=== PATIENT | male | born 1950 | race Caucasian/White ===

== ENCOUNTER 2018-05-02 00:28 | Observation (INO) | payer OTHER ==
[2018-05-02] MEDS ORDERED: ASPIRIN 81 MG CHEWABLE TAB PO ONE (00:42)
--- NOTE | 2018-05-02 00:42 | EDPHY ---
H & P Time Seen by Provider: 05/02/18 00:30 HPI/ROS: Chief Complaint: Shaking, lightheaded, sweating HPI: 67-year-old male was at work this morning finishing up paperwork when he had the sudden onset of shaking in both of his hands, he got very lightheaded and sweaty. [place] his breathing was shallow and felt like he might pass out. Did not have any chest pain. Is has never had similar episodes in the past. No history of coronary artery disease. States he last had an ECG about a year ago was told that was normal. Did recently have a trip to [place]. No leg pain or swelling but has not been having some bilateral knee pain. Does have a history of arthritis. No recent illness. No fevers or chills. No cough. Does not have a family history of coronary artery disease or sudden cardiac . Paramedics were called. Patient appeared quite diaphoretic on presentation. ROS: 10 systems were reviewed and were negative except those elements noted in the HPI. PMH: Arthritis Social History: No smoking, no alcohol, no recreational drug use Family History: non-contributory Physical Exam: Gen: Awake, Alert, No Distress HEENT: Nose: no rhinorrhea Eyes: PERRLA, EOMI Mouth: Moist mucosa Neck: Supple, no JVD Chest: nontender, lungs clear to auscultation Heart: S1, S2 normal, no murmur Abd: Soft, non-tender, no guarding Back: no CVA tenderness, no midline tenderness Ext: no edema, non-tender Skin: no rash Neuro: CN II-XII intact, Sensation grossly intact, Strength 5/5 in bilateral upper and lower extremities Constitutional: Initial Vital Signs Temperature (C) 37.8 C 05/02/18 00:36 Heart Rate 105 H 05/02/18 00:36 Respiratory Rate 18 05/02/18 00:36 Blood Pressure 143/80 H 05/02/18 00:36 O2 Sat (%) 96 05/02/18 00:36 O2 Delivery Mode Nasal Cannula O2 (L/minute) 2 Allergies/Adverse Reactions: No Known Allergies Allergy (Unverified 05/02/18 00:50) Home Medications: Medication Instructions Recorded Prednisone 05/02/18 Medical Decision Making - Diagnostics EKG Interpretation: ECG time 12:32 a.m., sinus tachycardia with a rate of 106, patient is Q-waves in leads to 3 in AVF, no acute ST or T-wave changes. Imaging Results: CT scan of the chest shows no large heart with congested vessels consistent with CHF, no PE. Study interpreted by Dr. Metz. ED Course/Re-evaluation: 67-year-old male with an episode of near-syncope shortness of breath and arm shaking. He has Q-waves on his ECG in the inferior leads. Troponin is negative. Symptoms are concerning for cardiac cause. Will obtain troponins laboratory evaluations reassess. Patient's troponin is 0. He does have an elevated D-dimer. Will obtain CT scan of the chest. CT chest is negative for PE. There is some cardiomegaly with congestive vessels consistent with congestive heart failure. I have discussed with Dr. Summers, hospitalist. She will admit to her service for further evaluation. - Data Points Laboratory Results: Laboratory Results 05/02/18 00:30 05/02/18 00:30 05/02/18 05/02/18 05/02/18 00:35 00:30 00:30 WBC RBC Hgb Hct MCV MCH MCHC RDW Plt Count MPV Neut % (Auto) Lymph % (Auto) Faulk % (Auto) Eos % (Auto) Baso % (Auto) Nucleat RBC Rel Count Absolute Neuts (auto) Absolute Lymphs (auto) Absolute Monos (auto) Absolute Eos (auto) Absolute Basos (auto) Absolute Nucleated RBC Immature Gran % Immature Gran # D-Dimer 3.26 ug/mLFEU H ug/mLFEU (0.00-0.50) Sodium 140 mEq/L mEq/L (135-145) Potassium 3.9 mEq/L mEq/L (3.5-5.2) Chloride 106 mEq/L mEq/L (97-110) Carbon Dioxide 19 mEq/l L mEq/l (22-31) Anion Gap 15 mEq/L H mEq/L (6-14) BUN 24 mg/dL H mg/dL (7-23) Creatinine 0.9 mg/dL mg/dL (0.7-1.3) Estimated GFR > 60 Glucose 102 mg/dL H mg/dL (70-100) Calcium 9.3 mg/dL mg/dL (8.5-10.4) POC Troponin I 0.02 ng/mL ng/mL (0.00-0.08) 05/02/18 00:30 WBC 11.24 10^3/uL H 10^3/uL (3.80-9.50) RBC 5.03 10^6/uL 10^6/uL (4.40-6.38) Hgb 15.6 g/dL g/dL (13.7-17.5) Hct 44.8 % % (40.0-51.0) MCV 89.1 fL fL (81.5-99.8) MCH 31.0 pg pg (27.9-34.1) MCHC 34.8 g/dL g/dL (32.4-36.7) RDW 13.6 % % (11.5-15.2) Plt Count 203 10^3/uL 10^3/uL (150-400) MPV 9.1 fL fL (8.7-11.7) Neut % (Auto) 87.4 % H % (39.3-74.2) Lymph % (Auto) 11.0 % L % (15.0-45.0) Faulk % (Auto) 0.8 % L % (4.5-13.0) Eos % (Auto) 0.2 % L % (0.6-7.6) Baso % (Auto) 0.2 % L % (0.3-1.7) Nucleat RBC Rel Count 0.0 % % (0.0-0.2) Absolute Neuts (auto) 9.82 10^3/uL H 10^3/uL (1.70-6.50) Absolute Lymphs (auto) 1.24 10^3/uL 10^3/uL (1.00-3.00) Absolute Monos (auto) 0.09 10^3/uL L 10^3/uL (0.30-0.80) Absolute Eos (auto) 0.02 10^3/uL L 10^3/uL (0.03-0.40) Absolute Basos (auto) 0.02 10^3/uL 10^3/uL (0.02-0.10) Absolute Nucleated RBC 0.00 10^3/uL 10^3/uL (0-0.01) Immature Gran % 0.4 % % (0.0-1.1) Immature Gran # 0.05 10^3/uL 10^3/uL (0.00-0.10) D-Dimer Sodium Potassium Chloride Carbon Dioxide Anion Gap BUN Creatinine Estimated GFR Glucose Calcium POC Troponin I Medications Given: Discontinued Medications Aspirin (Aspirin) 324 mg PO EDNOW ONE Stop: 05/02/18 00:43 Last Admin: 05/02/18 00:57 Dose: 324 mg Sodium Chloride (Ns) 1,000 mls @ 3,000 mls/hr IV ONCE ONE Stop: 05/02/18 01:58 Last Admin: 05/02/18 01:50 Dose: 1,000 mls Point of Care Test Results: Chemistry 05/02/18 00:35 POC Troponin I 0.02 ng/mL ng/mL (0.00-0.08) Departure - Departure Disposition: [facility] Inpatient Acute Clinical Impression: Near syncope Condition: Fair Referrals: NONE *PRIMARY CARE P,. [Unknown] - As per Instructions
[2018-05-02 01:12] LABS: PLATELET COUNT 203 10^3/uL (150-400)
[2018-05-02] MEDS ORDERED: NS 1,000 ML IV ONE ×3 (01:39→17:42)
[2018-05-02] MEDS ORDERED: IOPAMIDOL (ISOVUE 370) 100 ML BTL IV ONE (01:59)
[2018-05-02] MEDS ORDERED: ONDANSETRON DISINTEGRATING 4 MG TAB PO PRN (02:51)
[2018-05-02] MEDS ORDERED: ONDANSETRON 4 MG/2 ML VIAL IVP PRN (02:51)
[2018-05-02] MEDS ORDERED: ACETAMINOPHEN 325 MG TAB PO PRN (02:51)
[2018-05-02] MEDS ORDERED: LORazepam 0.5 MG TAB PO PRN (02:51)
[2018-05-02] MEDS ORDERED: HYDROCODONE/APAP 5/325 TAB PO PRN (02:51)
--- NOTE | 2018-05-02 04:10 | CPEKG ---
Test Reason : OPEN Blood Pressure : / mmHG Vent. Rate : 106 BPM Atrial Rate : 106 BPM P-R Int : 155 ms QRS Dur : 099 ms QT Int : 358 ms P-R-T Axes : 044 -01 -06 degrees QTc Int : 476 ms Sinus tachycardia Borderline T abnormalities, inferior leads Borderline prolonged QT interval Confirmed by Trip Marte ([id number]) on 05/02/2018 4:09:39 AM Referred By: Confirmed By:Trip Marte
[2018-05-02] MEDS ORDERED: MAGNESIUM HYDROXIDE 30 ML UDCUP PO PRN (06:08)
[2018-05-02] MEDS ORDERED: POLYETHYLENE GLYCOL 3350 17 GM PKT PO PRN (06:08)
[2018-05-02] MEDS ORDERED: BISACODYL 10 MG SUPP PR PRN (06:08)
[2018-05-02] MEDS ORDERED: LACTULOSE 20 GM/30 ML UDCUP PO PRN (06:08)
[2018-05-02] MEDS ORDERED: CARBOXYMETHYLCELLULOSE 0.5% 0.4 ML DROPERETTE EACHEYE PRN (07:11)
--- NOTE | 2018-05-02 08:34 | GHP ---
DATE OF ADMISSION: 05/02/2018 PRIMARY CARE PHYSICIAN: Andrea Mejia MD. SOURCE: Patient provided history, appears reliable, EMR was reviewed, and case discussed with ED provider. CHIEF COMPLAINT: Tremor and shortness of breath, and chest discomfort. HISTORY OF PRESENT ILLNESS: This is a very pleasant 67-year-old gentleman with past medical history significant for benign essential hypertension, rheumatoid arthritis, anxiety who presents to the emergency department today with complaints of sudden onset of dyspnea with associated tremor and chest discomfort. The patient reports that he was getting towards the end of his shift and he was sitting down, completing some paperwork, when he began to experience these symptoms. The patient reports that he chronically has a very mild tremor in his right upper extremity at baseline; however, it became quite severe and also included his left hand. He denies any headache, changes in vision, focal deficits. He denies any difficulty speaking. He did report that he developed some dyspnea and chest discomfort during this episode. He also developed diaphoresis. He denies any recent illnesses. No fevers, chills, cough. He did have a recent travel to [place], but denies any lower extremity swelling or calf pain. The patient with a history of RA and bilateral knee replacements, a total on the left and partial on the right, as well as a remote history of lumbar diskectomy. He states that he is generally quite active. He used to ride 10 miles several times weekly on his bike. Has been a little bit less active due to healing from his right partial knee replacement, but denies any previous history or recent history of chest discomfort or shortness of breath with exertion. The patient reports that he had a recent echocardiogram with his PCP within the last year that was reported to be normal. He also reports that he has had a remote history of a treadmill stress test many years ago that was also normal at that time. REVIEW OF SYSTEMS: Ten systems reviewed and negative except as noted above. ALLERGIES: No known drug allergies. HOME MEDICATIONS: The patient reports that he takes lisinopril/HCTZ 10. He is currently completing a prednisone taper for his osteoarthritis. He also has a history of anxiety, for which he is treated with clonazepam. PAST MEDICAL HISTORY: The patient has sleep apnea and wears a CPAP at night. PAST SURGICAL HISTORY: Significant for a diskectomy and left total knee arthroplasty, a right partial knee arthroplasty. FAMILY HISTORY: Mother with a diagnosis of OR and heart disease in her 80s, still living in her 90s and well. Brother and sister with rheumatoid arthritis. SOCIAL HISTORY: Patient is , lives with his . He works for [employer]. He does not smoke, quit 40 years ago. He drinks occasional alcohol, nothing on a daily basis. He does not use any illicit drugs or marijuana. CODE STATUS: Full. PHYSICAL EXAMINATION: VITAL SIGNS: Upon arrival to the emergency department, blood pressure is 143/80, heart rate 105, respiratory rate 18, O2 saturation 96 % on room air with temperature of 37.8. Patient did have 1 low pulse ox measured at 91% on room air, but this was transient. Blood pressure currently available on PCU floor. Blood pressure 117/72, heart rate 89, respiratory rate 17, O2 saturation is 93% on 2 L by nasal cannula, temperature of 36.7. GENERAL : No acute distress, very pleasant, obese, adult gentleman, who is sitting up comfortably on the edge of the bed. HEAD: Normocephalic, atraumatic. EYES: Extraocular muscles are grossly intact. Pupils are equal, round, reactive to light bilaterally. Patient has contact lenses in place bilaterally. He does have some mild conjunctival injection. ENT: Mucous membranes appear moist. Dentition intact. No oropharyngeal erythema. No exudates. No nasal discharge. NECK: Supple. Trachea midline. CV: Regular rate and rhythm. No murmurs, rubs, or gallops appreciated. No chest wall tenderness to palpation. RESPIRATORY: Unlabored breathing. Lungs clear to auscultation bilaterally. No wheezes, rales, or rhonchi appreciated. ABDOMEN: Obese, soft, nontender to palpation. No rebound, guarding, or masses appreciated. : No suprapubic tenderness to palpation. No Weaver catheter in place. EXTREMITIES: Patient without any cyanosis, clubbing, or edema appreciated. 2+ pedal pulses present and symmetric. NEURO: Grossly nonfocal. No facial drooping. Patient moves all extremities as noted above. PSYCH: Thought process, content, and all questions appropriate. Patient is pleasant and cooperative. LABORATORY STUDIES: 1. WBC is 11.24, H and H are 15.6 and 44.8, MCV of 89.1, platelet count is 203 , neutrophil percent is 87.4%, no bands. D-dimer is 3.26. 2. Sodium is 140, potassium is 3.9, chloride 106, CO2 is 19, anion gap of 15, BUN 24, creatinine 0.9, GFR greater than 60, glucose 102, calcium is 9.3. Troponin is negative. TSH is 2.41. Troponin is 0.025. Triglyceride 87, cholesterol is 160, LDL 81, HDL 62. 3. EKG was reviewed myself and shows sinus tachycardia in the low 100s, with Q- waves in the inferior leads and ST depressions in the lateral leads. QTc is 476. No comparison EKGs available. 4. Chest x-ray: Image reviewed myself and also reviewed with the patient. The patient with some mild enlargement of the cardiac silhouette. No vascular congestion is noted. No effusions appreciated. No consolidations. Right hemidiaphragm is slightly elevated, but no free air. 5. CT angio of the chest: Image reviewed. Preliminary report reviewed. Final report pending. Negative for PE. Atelectasis without pleural effusion. Question CHF. ASSESSMENT/PLAN: A very pleasant 67-year-old gentleman with a history of hypertension, obstructive sleep apnea, on CPAP, anxiety, rheumatoid arthritis, who presents to the emergency department with complaints of dyspnea and chest discomfort. 1. Chest discomfort. Initial EKG does show some Q-waves in the inferior leads and ST depressions in the lateral leads. Initial troponin is negative. We will plan to rule out with serial troponins, a repeat EKG in the morning. Given patient's dyspnea, evidence of cardiomegaly, and pulmonary vascular congestion, we will go ahead and order an echocardiogram. The patient has not had a stress test in several years. He has a HEART Score of 2. Given the patient's clinical picture, have discussed with the patient continuing with a treadmill stress test. He reports that he would be amenable to do this. I asked him if he thinks he would be able to complete this with his knee replacements. He reports that he thinks he will be able to do so. Given his increased risk factors and EKG changes, a treadmill with Nuclear Medicine stress as per protocol has been ordered. Echocardiogram in the morning as well. Patient received 324 mg of aspirin in the emergency department. His symptoms did resolve shortly after arrival. 2. Benign essential hypertension. Blood pressures at this time are acceptable. Patient reports he is compliant with daily dose of his lisinopril/ HCTZ. We will monitor blood pressures and continue his home medications. 3. Rheumatoid arthritis. The patient reports he is completing a taper of prednisone. Will continue once diet advanced. 4. Anxiety. Clonazepam p.r.n. 5. Fluid, electrolyte, nutrition. Patient received a liter of IV fluid in the emergency department, given his apparent vascular congestion. We will hold off on additional IV fluids. Patient reports that he has been urinating frequently. He is on HCTZ daily. Electrolytes appear adequate. Do not require replacement at this time. Patient will be n.p.o. and then advance diet after negative stress test. 6. Code status is full. 7. Disposition. Patient admitted to observation status on the PCU floor for close cardiac monitoring. Anticipating that patient's evaluation is negative, the patient has been admitted to observation status pending results of these studies as above. 8. Prophylaxis. Sequential compression devices. Holding anticoagulation at this time. /[id number]/MODL MTDD
[2018-05-02] MEDS: SENNOSIDES/DOCUSATE SODIUM TAB PO SCH ×2 (08:57→20:17)
[2018-05-02] MEDS ORDERED: REGADENOSON 0.4 MG/5 ML SYR IVP ONE (09:16)
--- NOTE | 2018-05-02 10:36 | ASMTCMCOM ---
CM Note CM Note Notes: Spoke with pt's in the room. Pt currently in stress test. Pt lives with and is active exercising several times a week. Pt likely to discharge independently with support from . CM to follow. D/C Plan: Home independently Date Signed: 05/02/2018 10:35 AM Electronically Signed By:Carine Valadez
--- NOTE | 2018-05-02 11:11 | CPR ---
DATE OF PROCEDURE: 05/02/2018 PROCEDURE: Walking treadmill Lexiscan stress test. REASON FOR TEST: Chest discomfort. Resting EKG shows T-wave inversion in lead III. Resting blood pressure 140/76, heart rate 80. He is asymptomatic. This test was started out as a treadmill Rogerio protocol stress test with Lexiscan. Due to inability to get his heart rate to predicted 85%, the test was switched to a Lexiscan walking stress test. There were no significant EKG changes while on the treadmill. He had no chest discomfort or shortness of breath. LEXISCAN NUCLEAR STRESS TEST: Lexiscan was injected, followed by saline flush. Cardiolite was then injected followed by saline flush. He remained walking at 1.7 miles an hour with no EKG changes and remained asymptomatic. Peak blood pressure was 146/84, peak heart rate 98 with injection. There were no significant EKG changes. He remained asymptomatic throughout the stress portion of test. RECOVERY: He spontaneously recovered. His EKG showed T-wave inversion in lead III and aVF. He was asymptomatic. His resting blood pressure was 136/76, heart rate 90. At this time, he currently is stable for nuclear imaging. /[id number]/MODL MTDD
--- NOTE | 2018-05-02 11:52 | ECHO ---
[email or web address] [address] Main: [phone] Fax: Transthoracic Echocardiogram Name: VAN MARTÍNEZ MR#: [id number] Study Date: 05/02/2018 Study Time: 07:48 AM Date of : 1950 Age: 67 year(s) Height: 175.3 cm (69 in.) Weight: 112.04 kg (247 lb.) BSA: 2.26 m2 Gender: Male Examination: Echo Indication: presyncope, Cardiac: dyspnea Image Quality: Technically Difficult Contrast: Requested by: Guerda Summers BP: 110 mmHg/52 mmHg Heart Rate: Rhythm: Indication: presyncope, Cardiac: dyspnea Procedure Staff Electroencephalograph Technologist: Sharifa Lucero RDCS Reading Physician: Francisco Javier Saucedo MD Requesting Provider: Conclusions: No pericardial effusion. Preserved LV systolic function with mild LV hypertrophy. Ejection fraction 60%. Mild mitral regurgitation. Moderate aortic regurgitation. Mild tricuspid regurgitation with right ventricular systolic pressure of 30 mm of mercury. Measurements: Chambers Valvular Assessment AV/MV Valvular Assessment TV/PV Normal Normal Normal Name Value Range Name Value Range Name Value Range Ao Ewelina (2D): 3.4 cm (1.4 cm-2.6 AV Vmax: 1.53 m/s (1 m/s-1.7 TR Vmax: 2.52 mm/s ( - ) cm) m/s) TR PGmax: 25 mmHg ( - ) IVSd (2D): 1.2 cm (0.6 cm-1.1 AV maxP mmHg ( - ) syst. PAP: 30 mmHg ( - ) cm) AV meanP mmHg ( - ) PV Vmax: 1.03 m/s (0.6 m/s-0.9 LVDd (2D): 5.4 cm (4.2 cm-5.9 BRENDEN (VTI): 2.9 cm ( - ) m/s) cm) MV E Vmax: 0.54 m/s ( - ) PV PGmax: 4 mmHg ( - ) LVDs (2D): 3.4 cm (2.1 cm-4 MV A Vmax: 0.63 m/s ( - ) cm) MV E/A: 0.86 ( - ) LVPWd (2D): 1.2 cm (0.6 cm-1 cm) MV PHT: 0.070 s ( - ) LVOTd 2.2 cm 2.2 cm mm MVA (PHT): 3.1 s ( - ) EF Range: 55-60 % RVDd(2D): 3.8 cm (1.9 cm-3.8 cmmm) Continued Measurements: Chambers Valvular Assessment AV/MV Valvular Assessment TV/PV Name Value Name Value Name Value LADs: 4.2 cm MV DecTime: 229 m/s CVP (est.): 5 mmHg LADs Lon.8 cm MV E' Septal: 0.07 m/s LA Area: 22.8 cm2 MV E/E' Septal: 7.30 Patient: VAN MARTÍNEZ Study Date: 05/02/2018 Page 1 of 2 07:48 AM LA Volume: 67 ml MV E/E' Lateral: 3.90 LA Volume Index: 29.6 ml/m2 RA Area: 13.8 cm2 Additional Vessels Name Value Ao Ascendin.3 cm Findings: Left Ventricle: Normal size left ventricle. Mild concentric LV hypertrophy. Normal global systolic LV function. The ejection fraction is estimated to be 55-60 %. No regional wall motion abnormality. Normal diastolic LV function. Right Ventricle: Normal size right ventricle. Normal RV function. Left Atrium: The left atrium is normal in size. Right Atrium: The right atrium is normal in size. Mitral Valve: The mitral valve is normal in appearance and function. Mild mitral valve regurgitation is present. No mitral stenosis is present. Aortic Valve: The aortic valve is normal in appearance. No aortic valve stenosis is present. Difficult to visualize aortic valve leaflets. There appears to be moderate aortic regurgitation. Tricuspid Valve: The tricuspid valve is normal in appearance and function. Mild tricuspid regurgitation is present. The pulmonary artery pressure is normal. Right ventricular systolic pressure measures 30mmHg. Pulmonic Valve: The pulmonic valve is normal in appearance and function. There is no pulmonic regurgitation seen. Aorta: The aorta is normal. Normal size aortic root measuring 3.4 cm. Normal size ascending aorta measuring 3.3 cm. IVC: The IVC is normal sized. Pericardium: No pericardial effusion. Exam Comments: Technically difficult imaging due to body habitus. Suggest RUSLAN to evaluate aortic regurgitation. (No Signature Object) Patient: VAN MARTÍNEZ Study Date: 05/02/2018 Page 2 of 2 07:48 AM [id number]
[2018-05-02] MEDS ORDERED: FUROSEMIDE 40 MG/4 ML VIAL IVP ONE (15:08)
[2018-05-02] MEDS ORDERED: clonazePAM 1 MG TAB PO PRN (15:09)
--- NOTE | 2018-05-02 15:13 | HOSPPROG ---
Hospitalist Progress Note Assessment/Plan: #Chest Pain -unremarkable myocardial study -unremarkable troponin #Moderate Aortic Valve Regurgitation -Cards to see for consideration of RUSLAN in a.m. #CHF, pulm vascular congestion, PEREZ, volume overload -Cards to see -Lasix IV -Preserved LVEF #HTN: labile -holding home BP meds in light of diuresis and labile BP #Acute UTI -Await cultures -Start Rocephin #RA, restart Prednisone SCD's Subjective: no current chest pain. reports dysuria and increased urinary frequency. no cp or sob. reports PEREZ. reports weight gain, pedal edema Objective: Vital Signs Temp Pulse Resp BP Pulse Ox 37.5 C 75 19 147/71 H 91 L 05/02/18 11:38 05/02/18 11:38 05/02/18 11:38 05/02/18 11:38 05/02/18 11:38 05/01/18 05/02/18 05/03/18 05:59 05:59 05:59 Intake Total 900 Output Total 950 100 Balance -50 -100 - Physical Exam Eyes: PERRL Ears, Nose, Mouth, Throat: moist mucous membranes, hearing normal Cardiovascular: regular rate and rhythym, edema Respiratory: no respiratory distress, reduced air movement Gastrointestinal: normoactive bowel sounds, soft, non-tender abdomen Skin: warm Neurologic: AAOx3 Psychiatric: interacting appropriately, not anxious, not encephalopathic Lymph, Heme, Immunologic: No petechiae ICD10 Worksheet Patient Problems: Problems Problem Status Onset Near syncope Acute
[2018-05-02] MEDS: predniSONE 5 MG TAB PO SCH (16:44)
--- NOTE | 2018-05-03 02:23 | GCON ---
REASON FOR CONSULT: We are asked to consult on the patient by the hospitalist due to shortness of breath and chest discomfort. HISTORY OF PRESENT ILLNESS: The patient is a 67-year-old gentleman with past history of hypertension. Last evening, he developed chest discomfort and shortness of breath with an associated tremor. He, additionally, became diaphoretic during this episode. He has not had any recent illnesses; however, he has noted urinary frequency over the last week. He is concerned that he may have a urinary tract infection. He has not been running a fever to his knowledge. Earlier today, he had a nuclear treadmill stress test that reported no cardiac ischemia. He had an echocardiogram done that did show moderate aortic insufficiency. Due to his body habitus, the aortic valve was not well visualized. We were asked to consider a transesophageal echocardiogram for better imaging of the aortic valve. At time of visit, he is resting with no complaint of chest pain or shortness of breath. His family is at bedside. REVIEW OF SYSTEMS: Ten-point system negative except as noted above. MEDICATIONS: He is on: 1. Lisinopril/hydrochlorothiazide 10/40 daily. 2. Clonazepam for anxiety. 3. Currently, prednisone taper for osteoarthritis. ALLERGIES: No known allergies. PAST MEDICAL HISTORY: He has sleep apnea and compliantly wears a CPAP. SURGICAL HISTORY: Diskectomy, left total knee arthroplasty, right partial knee arthroplasty. FAMILY HISTORY: Mother having MT in her 80s, and is still living. SOCIAL HISTORY: He is and lives at home with his . History of smoking and quit 40 years ago. Alcohol occasional. No use of illicit drugs. He is employed with [employer]. PHYSICAL EXAMINATION: Blood pressure 143/70, heart rate 97, respirations 20, oxygen saturation 96%, temperature 37.8 Celsius. GENERAL: He is in no acute distress. HEAD: Normocephalic. EYES: Pupils are equal and round. Membranes moist. No nasal discharge. Trachea midline. CARDIOVASCULAR: Heart rate is regular. No murmurs, rubs, or gallops. RESPIRATORY: Lungs are clear to auscultation. No wheezes, rales, or rhonchi. Abdomen is obese, soft, and nontender. No guarding or masses appreciated. : No suprapubic tenderness. Mild bilateral lower leg edema. No cyanosis. NEUROLOGIC: No facial drooping. Strong hand grasp. Moves appropriately. Thought process appropriate. He is pleasant and cooperative. REPORTS: 1. EKG on admission shows sinus tachycardia with inferior T-wave inversion, QTc 476. 2. Chest x-ray: Mild enlargement of cardiac silhouette. No vascular congestion noted. No effusions appreciated. No consolidations. Right hemidiaphragm slightly elevated. 3. CT angio of the chest: Negative for PE, atelectasis without pleural effusion. 4. Troponin negative. 5. Lipids: Cholesterol 160, triglycerides 87, LDL 81, HDL 62. 6. Nuclear stress test done 05/02/2018, showed no cardiac ischemia. 7. Echocardiogram 05/02/2008: Normal-sized left ventricle, mild concentric LV hypertrophy. Normal global systolic LV function. Ejection fraction estimated 55% to 60%. No regional wall motion abnormality. Normal diastolic LV function. Normal-sized right ventricle. Normal RV function. Left atrium is normal in size. Right atrium is normal in size. Mitral valve is normal with normal appearance and function. Mild mitral valve regurgitation. No mitral stenosis is present. Aortic valve: Aortic valve is normal in appearance. No aortic valve stenosis is present. Difficult to visualize aortic valve leaflets. Moderate aortic regurgitation. Tricuspid valve: The tricuspid valve is normal in appearance and function. Mild tricuspid regurgitation is present. Pulmonary artery pressure is normal. Right ventricular systolic pressure measures 30 mmHg. Pulmonic valve is normal in appearance and function. No pulmonic regurgitation seen. Aorta is normal. Normal-sized aortic root measuring 3.4 cm. Normal-sized ascending aorta measuring 3.3 cm. IVC is normal in size. Pericardium: No pericardial effusion. COMMENTS: Technically difficult imaging due to body habitus. Suggest RUSLAN to evaluate aortic regurgitation. IMPRESSION AND PLAN: Due to the inability to visualize the aortic valve, he will be scheduled for a RUSLAN in the morning. This was reviewed with him and his , with good understanding, and they are in agreement to proceed. He will be n.p.o. after midnight. Further recommendations forthcoming after the transesophageal echocardiogram procedure. At this time, he is currently stable with no chest pain or shortness of breath at time of visit. Thank you very much for asking us to be a part of this gentleman's care. /[id number]/MODL MTDD
[2018-05-03] MEDS ORDERED: NS 1,000 ML IV ONE ×2 (06:00)
--- NOTE | 2018-05-03 10:02 | PDANEPAE ---
ANE Past Medical History - Pulmonary History Hx Oxygen in Use at Home: No O2 in Use at Home (L/minute): 2-5l sleep apnea C-pap Hx Sleep Apnea: Yes - Endocrine History Hx Diabetes: No Hypothyroid: No Hyperthyroid: No Obesity: severe - Chronic Pain History Chronic Pain: Yes (arthritic) ANE Review of Systems Review of Systems: ANE Patient History - Allergies Allergies/Adverse Reactions: No Known Allergies Allergy (Verified 05/02/18 08:30) - Home Medications Home Medications: amLODIPine BESYLATE/BENAZEPRIL [Lotrel 10-40 mg Capsule] 1 each PO DAILY [Last Taken 05/01/18] clonazePAM [klonoPIN (*)] 2 mg PO BID PRN 05/02/18 [Last Taken Unknown] predniSONE 5 mg PO DAILY 05/02/18 [Last Taken 05/01/18] - Smoking Hx Smoking Status: Never smoked ANE Labs/Vital Signs - Labs Result Diagrams: 05/02/18 00:30 05/02/18 00:30 - Vital Signs Blood Pressure: 132/69 Heart Rate: 67 Respiratory Rate: 19 O2 Sat (%): 94 Height: 175.26 cm Weight: 109 kg ANE Physical Exam - Airway Neck exam: decreased ROM, increased neck circumference Mallampati Score: Class 4 Mouth exam: normal dental/mouth exam - Pulmonary Pulmonary: no respiratory distress - Cardiovascular Cardiovascular: irregularly irregular - ASA Status ASA Status: III ANE Anesthesia Plan Anesthesia Plan: GA with mask Total IV Anesthesia: Yes
[2018-05-03] MEDS ORDERED: PROPOFOL/EMULSION 500 MG/50 ML BOTTLE IV ONE (10:06)
[2018-05-03] MEDS ORDERED: LIDOCAINE 1% 5 ML SDV ONE (10:06)
[2018-05-03] MEDS ORDERED: SUCCINYLCHOLINE CHLORIDE 200 MG/10 ML SYR IVP ONE (10:07)
--- NOTE | 2018-05-03 10:20 | PDHPUP ---
History & Physical Update H&P update statement: This history and physical update is based on an assessment of the patient which was completed after admission or registration (within 24 hours), but prior to the surgery/procedure. H&P update: H&P reviewed & patient examined, no change in patient's condition since H&P completed
--- NOTE | 2018-05-03 10:54 | POSTANESTH ---
Post Anesthetic Evaluation Cardiovascular Status: Normal, Stable Respiratory Status: Normal, Stable Level of Consciousness/Mental Status: Mildly Sleepy, Arousable Pain Control: Adequate, Prn Tx Ordered Nausea/Vomiting Control: Adequate, Prn Tx Ordered Complications Possibly Related to Anesthesia: None Noted
--- NOTE | 2018-05-03 11:27 | CPR ---
DATE OF PROCEDURE: 05/03/2018 PROCEDURE PERFORMED: Transesophageal echocardiogram. INDICATION FOR PROCEDURE: Transthoracic echocardiogram performed the day before demonstrated moderat e aortic insufficiency. Aortic valve was unable to be adequately assessed in regard to leaflet statu s. In the setting of complaints of shortness of breath, decision was made to pursue transesophageal echocardiogram for further evaluation of the aortic valve. DESCRIPTION OF PROCEDURE: After an informed consent was obtained for both transesophageal echocardio gram as well as anesthesia, the patient had a bite block placed. Once bite block was placed, sedatio n was achieved with propofol. RUSLAN probe was passed without incident. RUSLAN probe was used to take mul tiple images of the aortic valve in short and long axis. Transgastric images were also obtained of t he aortic valve demonstrating moderate aortic insufficiency and trileaflet aortic valve. There is mi ld aortic sclerosis without stenosis. Pressure half-time of approximately 467 milliseconds consisten t with moderate aortic insufficiency. Valvular structures of the mitral valve, tricuspid, and pulmonic valve were also obtained. There was trivial mitral regurgitation. There is no evidence of vegetations or endocarditis on valvular struc tures. Left ventricular function was normal. Please see echocardiogram report for full details. The patient tolerated the procedure well. At the time of this dictation, the patient is recovering f rom sedation. He has remained hemodynamically stable throughout the procedure. CONCLUSION: 1. Trileaflet mildly sclerotic aortic valve with moderate aortic insufficiency with pressure half ti me of approximately 467 milliseconds. 2. Normal left ventricular function. 3. Normal mitral valve structure and function with trivial mitral regurgitation. /[id number]/MODL
[2018-05-03 11:51] VITALS: BP 118/69
[2018-05-03] MEDS: predniSONE 5 MG TAB PO SCH (13:36)
[2018-05-03] MEDS: SENNOSIDES/DOCUSATE SODIUM TAB PO SCH (13:37)
--- NOTE | 2018-05-03 13:58 | GDS ---
DIAGNOSES: 1. Urinary tract infection. 2. Moderate aortic insufficiency. 3. Anion gap metabolic acidosis. 4. Chest pain, shortness of breath, resolved. 5. Hypertension. 6. Rheumatoid arthritis. 7. Suspected benign prostatic hypertrophy. HOSPITAL COURSE: This is a 67-year-old man who presented with systemic symptoms including chest tigh tness, shortness of breath, as well as some tremors and possible fevers. Initially there was concern for cardiac etiology. Thus, he underwent significant cardiopulmonary testing including CT angiogram which was negative for a PE; echocardiogram which showed a normal EF, unable to visualize his aortic valve; transesophageal echocardiogram showing moderate aortic insufficiency; Lexiscan stress test wi th nuclear imaging which was negative for ischemia or infarct. He had a urinalysis which showed sign ificant pyuria. He also reported some dysuria, as well as increased frequency the day of presentatio n. He notes that he has had some issues starting his urinary stream recently as well. He received 2 doses of Rocephin as an inpatient. We will plan to treat him for an additional 5 days with oral Lev aquin on discharge. I have given him risks and side effects of taking Levaquin including tendon rupt ure and infectious diarrhea. 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 I do not thi nk this caused a part in his presentation. I have discussed all this with both him and his . He is discharged to home in stable condition. FOLLOWUP: 1. Urologist given symptoms of benign prostatic hypertrophy. 2. Inventory Planner for monitoring of his aortic valve. /[id number]/MODL
--- NOTE | 2018-05-03 14:14 | ASDISCHSUM ---
Discharge Information Plan Status:Home with No Needs Medically Cleared to Leave:05/02/2018 Discharge Date:05/02/2018 CM D/C Disposition:Home, Routine, Self-Care ADT D/C Disposition:Home, Routine, Self-Care Projected Discharge Date:05/02/2018 Transportation at D/C:Family Discharge Delay Reason: Follow-Up Date:05/02/2018 Discharge Slot: Final Diagnosis: Placement Information Patient Contact Information Contact Name:WILLIAM Relationship: Address:[address] Work Phone: City:[facility] Phone: State/Zip Code:[place] [address] Email: Financial Information Financial Class:Medicare Primary Plan Desc:MEDICARE OUTPATIENT Primary Plan Number:[id number] Secondary Plan Desc:DEON Secondary Plan Number:[id number] Assessment Information LACE LACE Length of stay for Answers: 1 day current admission Acuity / Level of Answers: No Care: Did the patient have an inpatient admission? Comorbidities - select Answers: Opioid dependence all that apply / Chronic pain # of Emergency department Answers: 1-2 visits in the last 6 months Score: 6 Date Signed: 05/03/2018 02:12 PM Electronically Signed By:Margo Reyes RN [facility] Progress Note CM Marco MORTON Note Notes: Spoke with pt's in the room. Pt currently in stress test. Pt lives with and is active exercising several times a week. Pt likely to discharge independently with support from . CM to follow. D/C Plan: Home independently Date Signed: 05/02/2018 10:35 AM Electronically Signed By:Carine Valadez Case Management Discharge Plan Note Case Management Discharge Discharge Order Complete? Answers: Yes Patient to Obtain Answers: via Family Medications Transportation Arranged Answers: Family/Friends Discharge Comments Notes: 05/03/2018 Case Management Note Pt to discharge independent with no needs from case management. Date Signed: 05/03/2018 02:13 PM Electronically Signed By:Margo Reyes RN Intervention Information Intervention Type:*DAVID-Signed Date of Service:05/02/2018 01:53 PM Patient Type:Observation Staff Member:Arnaldo Rankin Hours: Discipline: Severity: Comment:
--- NOTE | 2018-05-03 16:33 | ECHO ---
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 Normal global systolic LV function. Normal RV function. Lipomatous interatrial septum. No thrombus in left appendage. The mitral valve is normal in appearance and function. Mild mitral valve regurgitation is present. There is no mitral valve vegetation. There is mild thickening of the aortic cusps. Moderate aortic valve regurgitation is present. No aortic valve stenosis is present. There is no aortic valve vegetation. There is no significant tricuspid valve regurgitation. No pericardial effusion. Measurements: Chambers Valvular Assessment AV/MV Valvular Assessment TV/PV Normal Normal Normal Name Value Range Name Value Range Name Value Range AR (PHT): 494 ms ( - ) Additional Measurements: Valvular Assessment AV/MV Patient: VAN MARTÍNEZ Study Date: 05/03/2018 Page 1 of 2 10:02 AM Name Value AR Vmax: 3.16 cm/s Findings: Left Ventricle: Normal size left ventricle. Normal global systolic LV function. Right Ventricle: Normal size right ventricle. Normal RV function. Left Atrium: Lipomatous interatrial septum. Left Atrial Appendage: No thrombus in left appendage. 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 Mitral Valve: The mitral valve is normal in appearance and function. Mild mitral valve regurgitation is present. There is no mitral valve vegetation. Aortic Valve: The aortic valve is tri-leaflet. There is mild thickening of the aortic cusps. Moderate aortic valve regurgitation is present. No aortic valve stenosis is present. There is no aortic valve vegetation. Tricuspid Valve: The tricuspid valve is normal in appearance and function. There is no significant tricuspid valve regurgitation. Pericardium: No pericardial effusion. l1n (No Signature Object) Patient: VAN MARTÍNEZ Study Date: 05/03/2018 Page 2 of 2 10:02 AM [id number]
== END 2018-05-03 14:50 | disposition home or self-care (01) ==
LOC: EDUNIT# → F2W 03:32
PROVIDERS: ADMIT Family Medicine; ATTEND Student in an Organized Health Care Education/Training Program
PROC: B245ZZ4 Ultrasonography of Left Heart, Transesophageal (ICD-10-PCS; principal; 2018-05-02)
DX: R55 Syncope and collapse (principal); N39.0 Urinary tract infection, site not specified; I35.1 Nonrheumatic aortic (valve) insufficiency; E87.2 Acidosis; R07.89 Other chest pain; G47.33 Obstructive sleep apnea (adult) (pediatric); I10 Essential (primary) hypertension; M06.9 Rheumatoid arthritis, unspecified; Z96.653 Presence of artificial knee joint, bilateral
CPT/HCPCS: 71046; 71275; 78452; 93005; 93017; 93306; 93312; 96374; 96375; 99285; A9500; J0330; J0696; J1940; J2704; J2785; J7512; Q9967; 84484-PO